=== PATIENT | male | born 1950 | race Caucasian/White ===

== ENCOUNTER 2023-12-10 10:43 | Outpatient (CLI) | payer MEDICARE ==
[~2023-12-10 10:43] MED LIST: ALLO100T PO; ATOR10TA70 PO; FERR324T PO; GLIM4TAB7 PO; HYDR-4383 PO; LISI20TA28 PO; METF-438 PO; PANT-47 PO
== END 2023-12-10 23:59 | disposition home or self-care (01) ==
LOC: CARD DIAG 10:43
PROVIDERS: ATTEND Student in an Organized Health Care Education/Training Program
DX: I08.0 Rheumatic disorders of both mitral and aortic valves (principal); R01.1 Cardiac murmur, unspecified; R18.8 Other ascites
CPT/HCPCS: 93306